=== PATIENT | male | born 1970 | race Caucasian/White ===

== ENCOUNTER 2017-04-27 18:15 | Emergency (ER) | payer BC ==
--- NOTE | 2017-04-27 18:22 | UC ---
Abdominal Pain Male HPI - HPI Summary HPI Summary: 47 year old male presents with right sided abdominal pain. - History of Current Complaint Stated Complaint: RIGHT SIDE PAIN Time Seen by Provider: 04/27/17 18:21 Hx Obtained From: Patient Onset/Duration: Lasting Days Severity Initially: Moderate Severity Currently: Moderate Pain Scale Used: 0-10 Numeric - 8 - Allergies/Home Medications Allergies/Adverse Reactions: Allergies Allergy/AdvReac Type Severity Reaction Status Date / Time No Known Allergies Allergy Verified 04/27/17 18:32 Home Medications: Home Medications Omeprazole CAP* [Prilosec CAP* 20 MG] 20 mg PO DAILY 04/27/17 [History Confirmed 04/27/17] Ranitidine HCl (Nf) [Zantac] 75 mg PO DAILY 04/27/17 [History Confirmed 04/27/17 ] PMH/Surg Hx/FS Hx/Imm Hx Previously Healthy: Yes Review of Systems Constitutional: Negative Skin: Negative Eyes: Negative ENT: Negative Respiratory: Negative Cardiovascular: Negative Gastrointestinal: Abdominal Pain Genitourinary: Negative Motor: Negative Neurovascular: Negative Musculoskeletal: Negative Neurological: Negative Psychological: Negative All Other Systems Reviewed And Are Negative: Yes Physical Exam Triage Information Reviewed: Yes Vital Signs Reviewed: Yes Eye Exam: Normal ENT Exam: Normal Dental Exam: Normal Neck exam: Normal Neck: Positive: 1 Respiratory Exam: Normal Cardiovascular Exam: Normal Abdomen Description: Positive: Other: - right sided abdominal pain Musculoskeletal Exam: Normal Neurological Exam: Normal Psychological Exam: Normal Skin Exam: Normal Abd Pain Male Course/Dx - Differential Dx/Clinical Impression Provider Diagnoses: right abdominal pain Discharge - Discharge Plan Condition: Stable Disposition: HOME
[2017-04-27 18:32] VITALS: BP 152/94
--- NOTE | 2017-04-27 19:28 | RAD ---
INDICATION: Evaluate for obstruction COMPARISON: None TECHNIQUE: Erect and supine views of the abdomen are submitted. FINDINGS: Bones: There are no acute bony findings. Soft tissues: The soft tissues appear normal. The psoas margins are sharp. Bowel gas pattern: Normal Calcifications: There are no abnormal calcifications. Other: None IMPRESSION: NO ACUTE DIAGNOSTIC FINDINGS. NO FINDINGS OF OBSTRUCTION
== END 2017-04-27 19:43 | disposition home or self-care (01) ==
LOC: UCCORT 18:15
DX: R10.9 Unspecified abdominal pain (principal)
CPT/HCPCS: 74020; 99202; G0463

== ENCOUNTER 2017-05-24 19:44 | Emergency (ER) | payer BC ==
[2017-05-24 21:27] VITALS: BP 158/101
[2017-05-24] MEDS ORDERED: Albuterol 2.5 MG/3 ML NEB.SOL* (0.083%) INH ONE (22:08)
[2017-05-24] MEDS ORDERED: predniSONE TAB* 20 MG PO ONE (22:08)
[2017-05-24] MEDS ORDERED: Amoxicillin/Clavulanate TAB* 875 MG PO ONE (22:11)
--- NOTE | 2017-05-25 23:53 | UC ---
Respiratory Complaint HPI - HPI Summary HPI Summary: 47 y/o male presents to the urgent care c/o productive cough for for the past week. Pt states a lot of sinus congestion with green discharge and wheezing, mild SOB since this morning. He also states every year he has similar symptoms and his PCP Rx Augmentin. Pt denies fever, chest pain, abdominal pain, N/V/D. He has been taking Robitussin, and alkazeltser for cold and flu to alleviate symptoms. - History of Current Complaint Chief Complaint: UCGeneralIllness Stated Complaint: CONGESTION Time Seen by Provider: 05/24/17 21:58 Hx Obtained From: Patient Onset/Duration: Gradual Onset, Lasting Weeks - 1 week, Still Present, Worse Since - today Timing: Constant Severity Initially: Moderate Severity Currently: Moderate Pain Intensity: 5 Pain Scale Used: 0-10 Numeric Character: Cough: Productive, Sputum Description: - green Aggravating Factors: Allergens Alleviating Factors: OTC Meds Associated Signs And Symptoms: Positive: Fever, Wheezing, URI, Nasal Congestion , Sinus Discomfort Related History: Seasonal Allergies - Risk Factors Pulmonary Embolism Risk Factors: Negative Cardiac Risk Factors: Negative Pseudomonas Risk Factors: Negative Tuberculosis Risk Factors: Negative - Allergies/Home Medications Allergies/Adverse Reactions: Allergies Allergy/AdvReac Type Severity Reaction Status Date / Time No Known Allergies Allergy Verified 05/24/17 21:27 PMH/Surg Hx/FS Hx/Imm Hx Previously Healthy: Yes GI/ History: Gastroesophageal Reflux - Surgical History Surgical History: Yes Surgery Procedure, Year, and Place: ankle and knee surgery - Family History Known Family History: Positive: Cardiac Disease, Hypertension - Social History Occupation: Employed Full-time Lives: With Family Alcohol Use: Occasionally Substance Use Type: None Smoking Status (MU): Never Smoked Tobacco - Immunization History Most Recent Influenza Vaccination: none Review of Systems Constitutional: Fever Skin: Negative Eyes: Negative ENT: Nasal Discharge, Sinus Congestion, Sinus Pain/Tenderness Respiratory: Shortness Of Breath, Cough, Other - wheezing Cardiovascular: Negative Gastrointestinal: Negative Genitourinary: Negative Motor: Negative Neurovascular: Negative Musculoskeletal: Negative Neurological: Headache Psychological: Negative Is Patient Immunocompromised?: No All Other Systems Reviewed And Are Negative: Yes Physical Exam Triage Information Reviewed: Yes Vital Signs: Initial Vital Signs Temp 97.6 F 05/24/17 21:23 Pulse 62 05/24/17 21:23 Resp 16 05/24/17 21:23 BP 158/101 05/24/17 21:23 Pulse Ox 98 05/24/17 21:23 - Additional Comments Vitals: reviewed General: Well developed, well-nourished male patient with NAD. Head and face: Normocephalic and atraumatic, Positive tenderness over the frontal and maxillary sinuses.. Eyes: PERRLA, EOMI x 2. Normal conjunctiva. No eye discharge. ENT: Ears and TM with normal limits. Nose: with yellowish discharge and erythematous mucosa. Pharynx with erythema , no exudate. Neck: Supple, no JVD, no carotid bruits and no lymphadenopathy. Lungs: B/L posterior scattered wheezes, no rhonchi, no rales, no rhonchi, CVS: RRR, S1 and S2 present no murmurs or gallops appreciated. Abdomen: soft nontender with positive bowel sounds. Extremities: no edema noted. Neuro: WNL. Skin: warm and dry UC Diagnostic Evaluation - Laboratory O2 Sat by Pulse Oximetry: 98 Respiratory Course/Dx - Course Course Of Treatment: 47 y/o male presents to the urgent care c/o productive cough for for the past week. Pt states a lot of sinus congestion with green discharge and wheezing, mild SOB since this morning. He also states every year he has similar symptoms and his PCP Rx Augmentin. Pt denies fever, chest pain, abdominal pain, N/V/D. He has been taking Robitussin, and alkazeltser for cold and flu to alleviate symptoms. Hx obtained. Pt with sinusitis and B/L posterior lungs with wheezing on examination.O2Sat:98%. Pt given Prednisone PO and albuterol Tx at the clinic. Pt tolerated well Tx and lungs cleared. Pt felt better. Pt Rx Prednisone taper dose and Augmentin PO and albuterol inhaler.Pt's BP is elevated today advised to decrease salt in diet, monitor BP and f/u with PCP for further management. Discharge instructions explained to Pt. Advised to Return to the clinic or PCP if symptoms do not improve.Pt understood and agreed with plan of care. - Differential Dx/Diagnosis Differential Diagnosis/HQI/PQRI: Asthma, Bronchitis, Influenza, Laryngitis, Lower Resp Infection, Sinusitis, Other - pharyngitis Provider Diagnoses: 1- Acute bacterial infections. 2-Wheezing Discharge - Discharge Plan Condition: Stable Disposition: HOME Prescriptions: Albuterol HFA INHALER* [Ventolin HFA Inhaler*] 1 - 2 puff INH Q4H PRN #1 mdi PRN Reason: Cough Amoxicillin/Clavulanate TAB* [Augmentin TAB 875*] 875 mg PO BID #19 tab predniSONE TAB* [Deltasone TAB*] 20 mg PO DAILY #8 tab Patient Education Materials: Sinusitis (ED), Low-Sodium Diet (ED), Wheezing (ED ) Referrals: [facility] [Outside] - 3 Days Additional Instructions: 1- Please increase fluid intake and rest. take full course of antibiotic to avoid resistance 2-Take Prednisone PO and albuterol inhaler to alleviate wheezing 3-If you develop severe wheezing, fever and SOB please go immediately to the ER for further management 4-F/u with your PCP in 2-3 days if symptoms do not improve for further management and treatment 5-Your BP is elevated today. please decrease salt in your diet, monitor BP and if it continues to be elevated please f/u with your PCP for further management
== END 2017-05-24 23:03 | disposition home or self-care (01) ==
LOC: UCCORT 19:44
DX: A49.9 Bacterial infection, unspecified (principal); R06.2 Wheezing; R50.9 Fever, unspecified; K21.9 Gastro-esophageal reflux disease without esophagitis
CPT/HCPCS: 99213; A9270-GY; G0463; J7512

== ENCOUNTER 2017-07-08 07:14 | Emergency (ER) | payer BC ==
--- NOTE | 2017-07-08 07:54 | UC ---
Throat Pain/Nasal Freddy HPI - HPI Summary HPI Summary: 47 year old male with sinus pressure c/o sinus congestion, coughing, bilateral ear pressure since yesterday. denies fever. Pt states he was up most of the night with the coughing. no shortness of breath . has had bronchitis and pneumonia many times and feels it is going that way in his chest. had bronchitis in May and took amox and it "knocked it out quick" [ End ] - History of Current Complaint Stated Complaint: SINUS PRESSURE Time Seen by Provider: 07/08/17 07:54 Hx Obtained From: Patient Severity: Moderate Cough: Productive - Allergies/Home Medications Allergies/Adverse Reactions: Allergies Allergy/AdvReac Type Severity Reaction Status Date / Time No Known Allergies Allergy Verified 07/08/17 07:58 Home Medications: Home Medications Guaifenesin/Dextromethorphan [Mucinex Dm Maximum Streng 60-1200 mg] 1 tab PO ONCE PRN 07/08/17 [History Confirmed 07/08/17] PMH/Surg Hx/FS Hx/Imm Hx Previously Healthy: Yes - Surgical History Surgical History: Yes Surgery Procedure, Year, and Place: ankle and knee surgery - Family History Known Family History: Positive: Cardiac Disease, Hypertension - Social History Occupation: Employed Part-time - [place] Lives: With Family Alcohol Use: Occasionally Substance Use Type: None Smoking Status (MU): Never Smoked Tobacco - Immunization History Most Recent Influenza Vaccination: none Review of Systems Constitutional: Fatigue ENT: Sore Throat, Sinus Pain/Tenderness Respiratory: Shortness Of Breath, Cough Is Patient Immunocompromised?: No All Other Systems Reviewed And Are Negative: Yes Physical Exam Triage Information Reviewed: Yes Appearance: Well-Appearing, No Pain Distress, Well-Nourished Vital Signs Reviewed: Yes Eye Exam: Normal ENT Exam: Normal Dental Exam: Normal Neck exam: Normal Neck: Positive: 1 Respiratory Exam: Normal Cardiovascular Exam: Normal Abdominal Exam: Normal Musculoskeletal Exam: Normal Neurological Exam: Normal Psychological Exam: Normal Skin Exam: Normal Throat Pain/Nasal Course/Dx - Course Course Of Treatment: appears viral at this time. with history of bronchitis that worsens will have abx available to start if sx persist or worsen but at this time advise supportive treatment and to f/u with PCP for elevated BP and URI f/u - Differential Dx/Diagnosis Differential Diagnosis/HQI/PQRI: Pharyngitis, Sinusitis, URI Provider Diagnoses: URI Discharge - Discharge Plan Condition: Good Disposition: HOME Prescriptions: Amoxicillin PO (*) [Amoxicillin 875 MG (*)] 875 mg PO BID #20 tab Benzonatate CAP* [Tessalon 100 MG CAP*] 100 mg PO TID PRN #20 cap PRN Reason: Cough Patient Education Materials: Upper Respiratory Infection (ED) Referrals: Non Staff,Doctor [Primary Care Provider] - 3 Days (if needed ) Additional Instructions: As we discussed your symptoms appear to be viral and you are advised to continue the mucinex and start the tessalon cough medicine. If your symptoms worsen over the next 48-72 hours then at that time you area advised to start the antibiotics.
[2017-07-08 07:58] VITALS: BP 145/96
== END 2017-07-08 08:29 | disposition home or self-care (01) ==
LOC: UCCORT 07:14
DX: J06.9 Acute upper respiratory infection, unspecified (principal)
CPT/HCPCS: 99212; G0463

== ENCOUNTER 2017-08-10 16:20 | Emergency (ER) | payer BC ==
[2017-08-10 17:33] VITALS: BP 160/93
--- NOTE | 2017-08-10 17:35 | UC ---
Throat Pain/Nasal Freddy HPI - HPI Summary HPI Summary: ST and cough x 2 days. Right ear pain today. - History of Current Complaint Chief Complaint: UCGeneralIllness Stated Complaint: SORE THROAT Time Seen by Provider: 08/10/17 17:31 Hx Obtained From: Patient Onset/Duration: Sudden Onset, Lasting Days - 2 Severity: Moderate Pain Intensity: 5 Pain Scale Used: 0-10 Numeric Cough: Nonproductive Associated Signs & Symptoms: Positive: Dysphagia, Hoarseness. Negative: Wheezing, Sinus Discomfort, Nasal Discharge, Fever, Vomiting, Rash - Epiglottits Risk Factors Epiglottis Risk Factors: Negative - Allergies/Home Medications Allergies/Adverse Reactions: Allergies Allergy/AdvReac Type Severity Reaction Status Date / Time No Known Allergies Allergy Verified 08/10/17 17:26 Home Medications: Home Medications Diphenhydra/Phenyleph/Acetamin [Theraflu Expressmax Cold Nt Lq] 1 udc PO ONCE PRN 08/10/17 [History Confirmed 08/10/17] PMH/Surg Hx/FS Hx/Imm Hx Previously Healthy: Yes GI/ History: Gastroesophageal Reflux - Surgical History Surgical History: Yes Surgery Procedure, Year, and Place: ankle and knee surgery - Family History Known Family History: Positive: Cardiac Disease, Hypertension - Social History Occupation: Employed Full-time Lives: With Family Alcohol Use: Occasionally Substance Use Type: None Smoking Status (MU): Never Smoked Tobacco - Immunization History Most Recent Influenza Vaccination: none Review of Systems Constitutional: Negative Skin: Negative Eyes: Negative ENT: Sore Throat, Ear Ache Respiratory: Cough Cardiovascular: Negative Gastrointestinal: Negative Genitourinary: Negative Motor: Negative Neurovascular: Negative Musculoskeletal: Negative Neurological: Negative Psychological: Negative Is Patient Immunocompromised?: No All Other Systems Reviewed And Are Negative: Yes Physical Exam Triage Information Reviewed: Yes Appearance: Well-Nourished, Ill-Appearing - mild, Pain Distress Vital Signs: Initial Vital Signs Temp 98.5 F 08/10/17 17:27 Pulse 82 08/10/17 17:27 Resp 16 08/10/17 17:27 BP 160/93 08/10/17 17:27 Pulse Ox 98 08/10/17 17:27 Vital Signs Reviewed: Yes Eyes: Positive: Conjunctiva Clear ENT: Positive: Hearing grossly normal, Pharyngeal erythema, TM red - right, no light reflex; left normal, Hoarse voice. Negative: Nasal drainage, Tonsillar swelling, Tonsillar exudate, Sinus tenderness Neck: Positive: Supple, Nontender, No Lymphadenopathy Respiratory: Positive: Lungs clear, Normal breath sounds, No respiratory distress, No accessory muscle use Cardiovascular: Positive: RRR, No Murmur, Pulses Normal, Brisk Capillary Refill Musculoskeletal: Positive: Strength Intact, ROM Intact Neurological: Positive: Alert, Muscle Tone Normal Psychological Exam: Normal Skin Exam: Normal Throat Pain/Nasal Course/Dx - Course Course Of Treatment: Rapid strep neg. Will treat as right otitis media, which will also cover possible bacterial pharyngitis. - Differential Dx/Diagnosis Differential Diagnosis/HQI/PQRI: Influenza, Laryngitis, Otitis Media, Pharyngitis, Sinusitis, Tonsillitis, URI Provider Diagnoses: Right otitis media, acute. pharyngitis. Elevated BP without diagnosis of HTN Discharge - Sign-Out/Discharge Documenting (check all that apply): Discharge - Discharge Plan Condition: Stable Disposition: HOME Prescriptions: Amoxicillin PO (*) [Amoxicillin 875 MG (*)] 875 mg PO BID #20 tab Patient Education Materials: Pharyngitis (ED), Ear Infection (ED) Referrals: No Primary Care Phys,NOPCP [Primary Care Provider] - [facility] [place] [facility] [Outside] - 2 Days Additional Instructions: Your strep test was negative. We will treat you with amoxicillin for your early right ear infections. Please get established with a primary care provider. Your blood pressure was elevated today. It may be due to pain, but you need to have this rechecked within 1 month. Return to urgent care if any new or worsening symptoms. - Billing Disposition and Condition Condition: STABLE Disposition: HOME
== END 2017-08-10 17:55 | disposition home or self-care (01) ==
LOC: UCCORT 16:20
DX: H66.91 Otitis media, unspecified, right ear (principal); J02.9 Acute pharyngitis, unspecified; R03.0 Elevated blood-pressure reading, without diagnosis of hypertension; K21.9 Gastro-esophageal reflux disease without esophagitis
CPT/HCPCS: 87651; 99212; G0463

== ENCOUNTER 2019-06-13 15:30 | Emergency (ER) | payer BC ==
--- NOTE | 2019-06-13 17:02 | UC ---
UC General HPI - HPI Summary HPI Summary: 49 yo gentleman sore throat / laryngitis x 2 weeks. RST neg at onset, but completed amoxil course. Amoxil did not help st, but did help some pain radiating to R ear. Hx bronchitis / pneumonia, but doesn't feel like that is the case now. Uses albuterol, flonase which helps. No fever / chills Cough min productive No GI issues No rash. No p/d/w. Concerned that he has an upcoming trip out of town scheduled soon. - History of Current Complaint Chief Complaint: UCGeneralIllness Stated Complaint: SORE THROAT Time Seen by Provider: 06/13/19 16:21 Hx Obtained From: Patient, Family/[place] Pain Intensity: 4 - Allergy/Home Medications Allergies/Adverse Reactions: Allergies Allergy/AdvReac Type Severity Reaction Status Date / Time No Known Allergies Allergy Verified 06/13/19 16:21 Home Medications: Home Medications guaiFENesin [Mucinex] 1 tab PO ONCE 06/13/19 [History Confirmed 06/13/19] PMH/Surg Hx/FS Hx/Imm Hx Previously Healthy: Yes - see hpi - Surgical History Surgical History: Yes Surgery Procedure, Year, and Place: ankle and knee surgery - Family History Known Family History: Positive: Cardiac Disease, Hypertension - Social History Alcohol Use: Occasionally Substance Use Type: None Smoking Status (MU): Never Smoked Tobacco - Immunization History Most Recent Influenza Vaccination: none Review of Systems All Other Systems Reviewed And Are Negative: Yes Constitutional: Positive: Negative Skin: Positive: Negative Eyes: Positive: Negative ENT: Positive: Sore Throat, Sinus Congestion, Other - see hpi Respiratory: Positive: Other - see hpi Cardiovascular: Positive: Negative Gastrointestinal: Positive: Negative Genitourinary: Positive: Negative Motor: Positive: Negative Neurovascular: Positive: Negative Musculoskeletal: Positive: Negative Neurological: Positive: Negative Psychological: Positive: Negative Is Patient Immunocompromised?: No Physical Exam Triage Information Reviewed: Yes Appearance: Well-Nourished - sitting up, conversing full sentance voice is hoarse Vital Signs: Initial Vital Signs Temp 97.4 F 06/13/19 16:22 Pulse 84 06/13/19 16:22 Resp 16 06/13/19 16:22 BP 177/107 06/13/19 16:22 Pulse Ox 98 06/13/19 16:22 Vital Signs Reviewed: Yes Eye Exam: Normal - sclerae a little injected, o/w nad ENT: Positive: Pharyngeal erythema - no sores / exudates airway patent, Nasal congestion, TM dull, Uvula midline Neck exam: Normal Neck: Positive: Supple, Nontender, No Lymphadenopathy Respiratory Exam: Normal Respiratory: Positive: Chest non-tender, Lungs clear, Normal breath sounds, No respiratory distress, No accessory muscle use Cardiovascular Exam: Normal Cardiovascular: Positive: RRR, No Murmur, Pulses Normal, Brisk Capillary Refill Abdominal Exam: Normal Abdomen Description: Positive: Nontender Musculoskeletal Exam: Normal Neurological Exam: Normal - grossly nonfoca Psychological Exam: Normal - nad Course/Dx - Course Course Of Treatment: RST neg Throat cx sent Reviewed coa / tx plan / follow up with pt and spouse Questions as posed answered to the best of my ability. - Diagnoses Provider Diagnosis: Pharyngitis Discharge ED - Sign-Out/Discharge Documenting (check all that apply): Patient Departure All imaging exams completed and their final reports reviewed: No Studies - Discharge Plan Condition: Stable Disposition: HOME Prescriptions: Azithromyxin KHURRAM (NF) [Z-Khurram (Zithromax) 250 mg tabs #6] 2 tab PO .TODAY, THEN 1 DAILY #6 tab predniSONE 10 mg TAB [Deltasone 10 MG TAB*] 10 mg PO DAILY #20 tab Patient Education Materials: Pharyngitis (ED) Referrals: No Primary Care Phys,NOPCP [Primary Care Provider] - Additional Instructions: Strep test (rapid) negative Throat culture sent. Please follow up with Dr. Vela, routine recheck (1-2 weeks). Follow up with your primary care physician, as soon as you are able. If possible, before your trip, otherwise soon after your return (<2 weeks). Your blood pressure is very high. 177/107. Avoid decongestants, caffeine. Hydrate. Seek medical attention for worse or new problems. - Billing Disposition and Condition Condition: STABLE Disposition: Home
[2019-06-13 18:09] VITALS: BP 174/97
== END 2019-06-13 17:21 | disposition home or self-care (01) ==
LOC: UCCORT 15:30
DX: J02.9 Acute pharyngitis, unspecified (principal); R09.81 Nasal congestion
CPT/HCPCS: 87070; 87651; 99212; G0463